=== PATIENT | female | born 1990 | race Caucasian/White ===

== ENCOUNTER 2018-08-31 06:35 | Emergency (ER) | payer OTHER ==
[~2018-08-31] VITALS: Ht 182.9 cm; Wt 68.0 kg
[2018-08-31] MEDS ORDERED: BACITRACIN ZINC 0.9GM TP ONE (06:40)
[2018-08-31 07:01] VITALS: BP 138/95
== END 2018-08-31 07:00 | disposition home or self-care (01) ==
LOC: ER 06:35
DX: S61.215A Laceration without foreign body of left ring finger without damage to nail, initial encounter (principal); W26.0XXA Contact with knife, initial encounter; Y99.0 Civilian activity done for income or pay
CPT/HCPCS: 99283